=== PATIENT | female | born 1995 | race Caucasian/White ===

== ENCOUNTER → 2017-02-14 | Outpatient (CLI) | payer BC ==
[~2017-02-14] MED LIST: CHOL400C9 PO; FLUO40CA8 PO; GADAVIST IV PRN; OMEG10007 PO
--- NOTE | 2017-02-14 14:01 | DIAGNOSTIC IMAGING REPORT ---
R INJECTION WRIST PRE MRI FLUOROSCOPY TIME: 25 seconds CLINICAL HISTORY: 21 years-old Female with RIGHT WRIST ARTHROGRAM PRE MRI. Acute right wrist pain PROCEDURE: After obtaining written informed consent, the patient was placed supine on the fluoroscopy table. A suitable site for needle insertion was marked using fluoroscopic guidance. The right wrist was prepped and draped in the usual sterile fashion. 1% lidocaine was used for skin, subcutaneous and deep soft tissue anesthesia. Under intermittent fluoroscopic guidance, a 22 gauge 1.5 inch spinal needle was inserted into the right radiocarpal joint. A total of 3 cc of one-to-one mixture of dilute Magnevist (0.1 cc in 10 cc saline) and Optiray 300 were injected. The needle was then removed. There were no apparent complications. The patient was transported to MR for further imaging. IMPRESSION: Fluoroscopic-guided right wrist arthrogram without immediate complication. The above report was generated using voice recognition software. It may contain grammatical, syntax or spelling errors. Electronically signed by: Pelon Buchanan M.D. 02/14/2017 2:00 PM Dictated Date/Time: 02/14/2017 1:58 PM
--- NOTE | 2017-02-14 14:36 | DIAGNOSTIC IMAGING REPORT ---
R UPPER EXTREMITY JOINT W/ CLINICAL HISTORY: RIGHT WRIST PAIN pain TECHNIQUE: Multi axial MRI postcontrast administration COMPARISON STUDY: None FINDINGS: Signal characteristics the osseous structures are unremarkable throughout. There is no evidence for a bone marrow replacing process. There is small amount of fluid between the distal radius and ulna consistent with a triangular fibrocartilage tear. Interosseous ligaments appear to be generally intact. There is a small contrast extravasation into the injection site. There are several small ganglion cysts closely opposed immediately dorsal to the navicular. These have a greatest overall dimension of 1.4 x 1.0 cm with individual cysts measuring up to 6 mm. Structures of the carpal tunnel appear unremarkable. All major ligamentous and tendinous structures are noted are intact. IMPRESSION: 1. Tear triangular fibrocartilage. 2. Several small closely opposed ganglion cyst immediately dorsal to the carpal navicular. 3. All remaining ligamentous and tendinous structures appear intact. 4. The structures of the carpal tunnel are intact. The above report was generated using voice recognition software. It may contain grammatical, syntax or spelling errors. Electronically signed by: Ousmane Clancy M.D. 02/14/2017 2:34 PM Dictated Date/Time: 02/14/2017 2:30 PM
== END | disposition home or self-care (01) ==
LOC: C.MRIBC 12:48
PROVIDERS: ATTEND Family Medicine Sports Medicine
DX: M25.531 Pain in right wrist (principal)